=== PATIENT | male | born 1995 | race Caucasian/White ===

== ENCOUNTER 2016-04-02 00:56 | Emergency (ER) | payer OTHER, BC ==
[~2016-04-02] VITALS: Ht 165.1 cm; Wt 110.0 kg
[~2016-04-02 00:56] MED LIST: Z.0.NO CURRENT MEDS
[2016-04-02] MEDS ORDERED: SODIUM CHLOR 0.9% 1000 ML INJ 1,000 ML IV SCH (01:10)
[2016-04-02 01:12] VITALS: BP 142/72; PULSE 89; RESP 18; TEMP 98.7; O2SAT 98
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
[2016-04-02] MEDS ORDERED: MORPHINE SULFATE 4 MG/ML INJ IV ONE (01:15)
[2016-04-02] MEDS ORDERED: SODIUM CHLORIDE 0.9% FLUSH 5 ML FLUSH IVF PRN (01:15)
[2016-04-02] MEDS ORDERED: ceFAZolin 2 GM PREMIX 50 ML IV ONE (01:15)
[2016-04-02] MEDS ORDERED: TETANUS/DIPHTHERIA TOXOID ADULT 0.5 ML VIAL IM ONE (01:15)
[2016-04-02 01:18] VITALS: O2SAT 98
[2016-04-02 01:19] VITALS: BP 123/59; PULSE 89; RESP 20; O2SAT 98
[2016-04-02 01:43] LABS: AUTOMATED NEUTROPHIL # 14.3 TH/MM3 (1.8-7.7); BASOPHIL # 0.1 TH/MM3 (0-0.2); BASOPHIL % 0.3 % (0.0-2.0); EOSINOPHIL # 0.1 TH/MM3 (0-0.4); EOSINOPHIL % 0.3 % (0.0-4.0); HEMATOCRIT 45.6 % (39.0-51.0); HEMO FLAGS DIFF FINAL; LYMPH % 15.9 % (9.0-44.0); LYMPHOCYTE # 2.9 TH/MM3 (1.0-4.8); MEAN CELL VOLUME 82.7 FL (80.0-100.0); MEAN CORPUSCULAR HGB CONC 33.8 % (32.0-36.0); NEUT % 78.5 % (16.0-70.0); PLATELET COUNT 276 TH/MM3 (150-450); RED BLOOD COUNT 5.51 MIL/MM3 (4.50-5.90); WHITE BLOOD COUNT 18.3 TH/MM3 (4.0-11.0)
[2016-04-02 01:57] LABS: APTT (PATIENT) 25.3 SEC (24.3-30.1); POTASSIUM 3.6 MEQ/L (3.5-5.1)
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
[2016-04-02] MEDS ORDERED: IOHEXOL 350 MG/ML 10 ML VIAL (for RAD DIAG) IV ONE (02:04)
[2016-04-02 02:25] VITALS: BP 131/70; PULSE 94; RESP 18; O2SAT 95
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
[2016-04-02 03:20] VITALS: BP 108/80; PULSE 73; RESP 18; O2SAT 95
[2016-04-02] MEDS ORDERED: HYDR-3516 PO (03:36)
[2016-04-02] MEDS ORDERED: IBUP800T23 PO (03:36)
[2016-04-02] MEDS ORDERED: KETOROLAC TROMETHAMINE 30 MG/ML (IVP) VIAL IV PUSH ONE (03:45)
[2016-04-02 03:56] VITALS: BP 111/50; PULSE 92; RESP 16; O2SAT 93
== END 2016-04-02 04:34 | disposition home or self-care (01) ==
LOC: NEPC 00:56
DX: S42.114A Nondisplaced fracture of body of scapula, right shoulder, initial encounter for closed fracture (principal); S27.321A Contusion of lung, unilateral, initial encounter; S93.402A Sprain of unspecified ligament of left ankle, initial encounter; V49.3XXA Car occupant (driver) (passenger) injured in unspecified nontraffic accident, initial encounter
CPT/HCPCS: 70450; 70486; 71260; 72125; 72131; 73030; 73610; 74177; 80048; 85025; 85610; 85730; 86850; 86900; 86901; 90471; 90714; 96374; 96375; 99285; J0690; J1885; J2270; J7030; Q9967